=== PATIENT | male | born 1965 | race Caucasian/White ===

== ENCOUNTER → 2016-04-09 | Outpatient (CLI) | payer OTHER ==
--- NOTE | 2016-04-09 14:52 | XR ---
EXAMINATION TYPE: XR chest 2V DATE OF EXAM: 04/09/2016 2:41 PM COMPARISON: None HISTORY: 50-year-old male with cough TECHNIQUE: Frontal and lateral views FINDINGS: Heart is upper limits of normal in size. Aorta and pulmonary vasculature within normal limits. Some s trandy atelectasis at the left base. No consolidation or pleural effusion. IMPRESSION: Heart at the upper limits of normal in size. Otherwise, no acute process seen.
== END | disposition home or self-care (01) ==
LOC: RADXRMAIN 14:21
PROVIDERS: ATTEND Family Medicine
DX: R05 Cough (principal)
CPT/HCPCS: 71020